=== PATIENT | male | born 1975 | race Caucasian/White ===

== ENCOUNTER 2017-01-12 19:36 | Emergency (ER) | payer MEDICARE, MEDICAID ==
[2017-01-12] MEDS ORDERED: Clindamycin 300 MG/2 ML VIAL ONE (20:18)
[2017-01-12] MEDS ORDERED: Dextrose 5% in Water 250 ML ONE (20:18)
== END 2017-01-12 21:02 | disposition home or self-care (01) ==
LOC: NAV ERS 19:36
DX: K04.7 Periapical abscess without sinus (principal); F31.9 Bipolar disorder, unspecified; F17.210 Nicotine dependence, cigarettes, uncomplicated; Z79.899 Other long term (current) drug therapy
CPT/HCPCS: 96365; J3490; J7070